=== PATIENT | female | born 1995 | race Caucasian/White ===

== ENCOUNTER → 2018-03-27 17:10 | Observation (INO) ==
--- NOTE | 2018-03-27 17:49 | OB/GYN Progress Note ---
Date of Encounter: 03/27/18 Time of Encounter: 16:30 - Assessment and Plan (1) 36 weeks gestation of Status: Acute Pooling, Nitrazine & Fern Negative. SVE unchanged from appointment yesterday. NST reactive, FHR baseline 140 bpm. Reviewed kick counts. Discharge home with return precautions. (2) Amniotic fluid leaking Status: Acute Subjective - Subjective Principal diagnosis: loss of fluid Interval history: 22 y/o presenting at 36w1d with c/o of loss of fluid that occurred at 1515. Denies VB or Ctx. Reports good FM. Antepartum ROS: loss of fluid, movement normal, no vaginal bleeding, no contractions Objective - Vital Signs Vital Signs: Intake and Output 03/27/18 03/27/18 03/27/18 07:59 15:59 23:59 Other: Weight 79.5 kg Patient Weight 03/27/18 23:59 Weight 79.5 kg - Exam FHR comments: NST reactive, FHR baseline 140 bpm Auscultation: bilateral: normal Abdomen: Present: normal appearance, soft, gravid Cervical dilation: fingertip Cervix effacement: thick station: high
== END | disposition home or self-care (01) ==
LOC: 1NENULAB
PROVIDERS: ADMIT Registered Nurse; ATTEND Registered Nurse

== ENCOUNTER 2018-04-16 08:00 | Inpatient (IN) ==
[2018-04-16] MEDS ORDERED: Metoclopramide 10 MG/2 ML VIAL IVP PRN (08:41)
[2018-04-16] MEDS ORDERED: Famotidine 20 MG/2 ML VIAL IVP PRN (08:41)
[2018-04-16] MEDS ORDERED: Ondansetron 4 MG/2 ML VIAL IVP PRN (08:41)
[2018-04-16] MEDS ORDERED: Naloxone 0.4 MG/ML INJ IVP PRN (08:41)
[2018-04-16] MEDS ORDERED: *HR* Nalbuphine 10 MG/ML AMPUL IVP PRN (08:41)
[2018-04-16] MEDS ORDERED: Ringers Solution, Lactated 1,000 ML IVC SCH (08:45)
[2018-04-16 09:16] LABS: Basophils % 0.5 %; Eosinophils # 0.1 K/mcL (0.0-0.6); Hematocrit 32.5 % (35.3-44.9); Hemoglobin 10.5 g/dL (11.5-15.4); Immature Granulocytes % 1.7 % (0-4); Lymphocytes # 1.9 K/mcL (0.6-4.6); Lymphocytes % 23.4 %; Mean Corpuscular HGB Conc 32.3 g/dL (31.6-35.5); Mean Corpuscular Hemoglobin 28.3 pg (28.0-33.3); Mean Corpuscular Volume 87.6 fL (83.0-100.0); Monocytes # 0.7 K/mcL (0.0-1.3); Monocytes % 7.9 %; Neutrophils # 5.4 K/mcL (1.6-8.9); Platelet Count 250 K/mcL (140-400); Red Blood Count 3.71 M/mcL (3.82-4.97); Red Cell Distribution Width 13.1 % (11.5-14.5); Segmented Neutrophils % 65.5 %
[2018-04-16] MEDS ORDERED: Epidural Premix (fent/bupiv) 110 ML EP SCH (09:30)
[2018-04-16 09:38] LABS: Amphetamine Screen,Urine Negative ng/mL (Cutoff=1000); Barbiturate Screen,Urine Negative ng/mL (Cutoff=200); Benzodiazepines Screen,Urine Negative ng/mL (Cutoff=200); Cannabinoid Screen,Urine Negative ng/mL (Cutoff = 50); Cocaine Screen,Urine Negative ng/mL (Cutoff= 300); Opiate Screen,Urine Negative ng/mL (Cutoff=300); Phencyclidine Screen,Urine Negative ng/mL (Cutoff=25)
[2018-04-16] MEDS ORDERED: miSOPROStol 25 MCG TABLET PO PRN (10:00)
--- NOTE | 2018-04-16 10:25 | Anesthesia Evaluation PreOp ---
Date of Encounter: 04/16/18 Time of Encounter: 10:07 - Past History Planned Operation: Del, term induction G1 Cardiac History: Denies any Significant Hx Pulmonary History: Denies Any Significant HX CONSTRUCTION COORDINATOR History: Denies Any Significant HX Other Medical History: Other (occ right sided sciatic pain, non-dependent radiculopathy down to knee, just started 1 month ago.) Anesthesia History: No Prior Anesthetic Complications, Past Anesthesia (no family hx reported.) Alcohol Use: none Drug use: none Medications and Allergies Ondansetron HCl [Zofran] 1 tab PO Q6H PRN 01/12/18 [History] Pnv95/Ferrous Fumarate/FA [ Vitamin Tablet] 1 tab PO DAILY 01/12/18 [History] Buspar 15 mg PO ONCE 04/16/18 [History] Omeprazole 40 mg PO ONCE 04/16/18 [History] Vistaril 04/16/18 [History] Allergy/AdvReac Type Severity Reaction Status Date / Time No Known Allergies Allergy Verified 01/12/18 14:24 Anesthesia Results - Labs 04/16/18 08:35 Anesthesia Exam - HEENT Pupil (Motor): Pupils equal Mallampati: II Teeth: Normal Oral Opening: Greater than 3 - CONSTRUCTION COORDINATOR LOC: Oriented CONSTRUCTION COORDINATOR Motor: Normal RUE, Normal LUE, Normal RLE, Normal LLE, Normal Face CONSTRUCTION COORDINATOR Sensory: Normal: RUE, LUE, RLE, LLE, Face - Cardiac Rhythm: Regular Murmur: None - Pulmonary Breath Sounds: bilateral Clear Respiratory Effort: Symmetrical Anesthesia Assess/Plan ASA Score: 2 Level of consciousness: Cooperative, Oriented Anesthetic Plan: General, Spinal, Epidural Monitoring Plan: Standard Monitors Recovery Plan: PACU
[2018-04-16] MEDS ORDERED: Lidocaine -MPF 2% 5 ML VIAL ONE (10:29)
[2018-04-16] MEDS: Acetaminophen 325 MG TABLET PO PRN ×2 (12:47→21:41)
--- NOTE | 2018-04-16 13:40 | OB Labor Progress Note ---
Date of Encounter: 04/16/18 Time of Encounter: 12:30 Labor Progress Note - Subjective Subjective: Patient resting in bed with family members at bedside. - Vital Signs Vital Signs: WNL - Cervix Cervix: 2/70/-3 - Heart Tones Heart Tones: FHR 130 bpm, moderate variability, +15x15 accels, no decels. - [place]: Irregular - Interventions Interventions: SVE Double cervical ripening balloon inserted. 60mL instilled in uterine balloon, 40 mL instilled in vaginal balloon. - Plan Physician notified: Yes Physician notified details: Dr. Lawton aware of michael placement Plan: Recheck cervix in 4 hours and consider michael removal. May have IV pain medication or epidural when she desires. AROM when appropriate Anticipate
[2018-04-16] MEDS ORDERED: Oxytocin 20 units/ LR 1000 mL 20 UNIT/1,000 ML BAG IVC SCH (15:45)
--- NOTE | 2018-04-16 17:02 | Event Note ---
Date of Encounter: 04/16/18 Time of Encounter: 16:30 SVE, double cervical ripening balloon removed. SVE /
--- NOTE | 2018-04-16 18:18 | Anesthesia Procedures ---
Addendum entered and electronically signed by Keenan Barragan CRNA 04/17/18 06:30: Infant Delivery Date: 04/17/18 Infant Delivery Time: 05:11 Original Note: Date of Encounter: 04/16/18 Time of Encounter: 17:28 Procedures: Anesthesia - Epidural/Spinal Patient ID/Chart reviewed: Yes Patient examined: Yes OB Eval: Gestational age: term OB Eval: : 1 OB Eval: Contractions: Non-stressed pattern Consent Obtained: Yes Supplemental Oxygen: None/Room Air Site Prep: Aseptic Technique, Sterile prep and drape, 0.5% Chlorhexidine/Alcohol Patient position: upright Local Anesthetic: Lidocaine 1% Amount of Local Anesthetic used: 2 Touhy Needle Gauge: 18 Touhy Needle Depth (cm): 6 Catheter Depth at Skin (cm): 10 Test Dose (1.5% Lido + Epi): Volume given (mls): 4 Test Dose Result: Negative Loading Dose: Other: 10ml from solution Loading Dose Administered: Thru Catheter Infusion Med: 0.125% Bupivacaine w/ 2 mcg/ml Fentanyl Infusion Rate (mls/hr): [address]: Tegaderm, Tape Interspace Used: L3-L4 Loss of Resistance (DONNA): Yes (saline) Blood: No CSF: No Paresthesia: No Procedure: vss though out, FHR stable per rn's
[2018-04-17] MEDS ORDERED: *HR* Ropivacaine/PF 0.5% 20 ML VIAL ONE (01:23)
--- NOTE | 2018-04-17 05:47 | OB/GYN Procedure Note ---
Delivery - Delivery Date: 04/17/18 Provider: Isaiah Lawton Delivery induction: misoprostol Delivery augmentation: rupture of membranes Delivery monitor: external uterine, internal uterine Anesthesia: epidural Quantitated Blood Loss: 200 - (s) Infant A Delivery Date: 04/17/18 Delivery Time: 05:11 Presentation: vertex Position: YOVANI Route of delivery: Gender: Female Viability: Viable Pounds: 7 Ounces: 9 at 1 minute: 8 at 5 mins: 9 Shoulder Dystocia: not encountered Cord: 3 umbilical vessels - Repair Episiotomy: none Laceration Description: Perineal - 1st Degree, Labial - Complications Delivery complications: none - Disposition Mom disposition: stable in LDR [place] disposition: stable in LDR - Comments Comments: Patient is status post normal spontaneous vaginal delivery of liveborn female infant. Delivery was from left occiput anterior presentation. We had spontaneous delivery of a normal placenta with three-vessel cord. There were bilateral labial tears and a first-degree laceration repaired with 3-0 Vicryl under epidural anesthesia. Estimated blood loss was 200 mL. Mother and infant recovered in labor and delivery room.
[2018-04-17] MEDS ORDERED: Oxytocin 20 units/ LR 1000 mL 20 UNIT/1,000 ML BAG IVC SCH (08:35)
[2018-04-17] MEDS ORDERED: Acetaminophen 325 MG TABLET PO PRN (08:35)
[2018-04-17] MEDS ORDERED: Measles/Mumps/Rubella Vacc 0.5 ML VIAL SQ PRN (08:35)
[2018-04-17] MEDS: Prenatal Vit/FA 1 EACH TABLET PO SCH (09:30)
[2018-04-17] MEDS: Ibuprofen 600 MG TABLET PO PRN ×3 (09:30→21:50)
[2018-04-18 06:19] LABS: Basophils % 0.2 %; Eosinophils # 0.1 K/mcL (0.0-0.6); Eosinophils % 1.2 %; Hematocrit 26.7 % (35.3-44.9); Immature Granulocytes % 0.8 % (0-4); Lymphocytes # 1.9 K/mcL (0.6-4.6); Lymphocytes % 18.6 %; Mean Corpuscular HGB Conc 31.5 g/dL (31.6-35.5); Mean Corpuscular Hemoglobin 27.5 pg (28.0-33.3); Mean Corpuscular Volume 87.3 fL (83.0-100.0); Mean Platelet Volume 9.9 fL (9.4-12.4); Monocytes # 0.7 K/mcL (0.0-1.3); Monocytes % 7.1 %; Neutrophils # 7.4 K/mcL (1.6-8.9); Platelet Count 204 K/mcL (140-400); Red Blood Count 3.06 M/mcL (3.82-4.97); Segmented Neutrophils % 72.1 %
[2018-04-18 06:20] LABS: Hemoglobin 8.4 g/dL (11.5-15.4)
[2018-04-18 07:42] VITALS: BP 98/62
[2018-04-18] MEDS: Prenatal Vit/FA 1 EACH TABLET PO SCH (09:34)
[2018-04-18] MEDS: Ibuprofen 600 MG TABLET PO PRN (09:35)
--- NOTE | 2018-04-18 09:40 | Discharge Summary ---
Date of Encounter: 04/18/18 Time of Encounter: 09:37 - Discharge Diagnosis (1) Vaginal delivery Priority: Primary Status: Acute Comments: Patient meeting day one milestones. Pain well-controlled with prescribed medications. Voiding without difficulty, tolerating regular diet. No bowel movement yet. Anticipate discharge today Patient does request Depo Provera prior to discharge. (2) First degree perineal laceration Priority: Secondary Status: Acute Comments: Ice pack, Dermoplast, Motrin as needed for discomfort. (3) Breast feeding status of mother Priority: Secondary Status: Acute Comments: support as needed. Patient does request a breast pump prescription. (4) anemia Priority: Secondary Status: Acute Comments: Discharge home with iron twice a day Patient is asymptomatic with a hemoglobin of 8.4 - Discharge Medications Prescriptions: New Breast Pump [BREAST PUMP] 1 each .ROUTE AD #1 each Acetaminophen [Tylenol] 650 mg PO Q6HR PRN tablet PRN Reason: Mild Pain Ibuprofen [Motrin] 600 mg PO Q6HR PRN #60 tablet PRN Reason: cramping Docusate [Colace] 100 mg PO BID capsule Ferrous Sulfate 325 mg PO BID #60 tablet Continue Pnv95/Ferrous Fumarate/FA [ Vitamin Tablet] 1 tab PO DAILY Vistaril Omeprazole 40 mg PO ONCE Buspar 15 mg PO ONCE Discontinued Ondansetron HCl [Zofran] 1 tab PO Q6H PRN PRN Reason: Nasal Congestion Home Medications: Pnv95/Ferrous Fumarate/FA [ Vitamin Tablet] 1 tab PO DAILY 01/12/18 [History] Buspar 15 mg PO ONCE 04/16/18 [History] Omeprazole 40 mg PO ONCE 04/16/18 [History] Vistaril 04/16/18 [History] Breast Pump [BREAST PUMP] 1 each .ROUTE AD #1 each 04/17/18 [Rx] Acetaminophen [Tylenol] 650 mg PO Q6HR PRN tablet 04/18/18 [Rx] Docusate [Colace] 100 mg PO BID capsule 04/18/18 [Rx] Ferrous Sulfate 325 mg PO BID #60 tablet 04/18/18 [Rx] Ibuprofen [Motrin] 600 mg PO Q6HR PRN #60 tablet 04/18/18 [Rx] Allergies/Adverse Reactions: Allergy/AdvReac Type Severity Reaction Status Date / Time No Known Allergies Allergy Verified 01/12/18 14:24 Data Procedures and tests throughout hospitalization: Laboratory Tests 04/16/18 04/16/18 04/18/18 08:35 08:35 06:07 WBC 8.3 10.2 RBC 3.71 L 3.06 L Hgb 10.5 L 8.4 L D Hct 32.5 L 26.7 L MCV 87.6 87.3 MCH 28.3 27.5 L MCHC 32.3 31.5 L RDW 13.1 13.0 Plt Count 250 204 MPV 10.0 9.9 Immature Gran % 1.7 0.8 Seg Neutrophils % 65.5 72.1 Lymphocytes % 23.4 18.6 Monocytes % 7.9 7.1 Eosinophils % 1.0 1.2 Basophils % 0.5 0.2 Neutrophils # 5.4 7.4 Lymphocytes # 1.9 1.9 Monocytes # 0.7 0.7 Eosinophils # 0.1 0.1 Basophils # 0.0 0.0 Urine Opiates Screen Negative Ur Barbiturates Screen Negative Ur Phencyclidine Scrn Negative Ur Amphetamines Screen Negative U Benzodiazepines Scrn Negative Urine Cocaine Screen Negative U Marijuana (THC) Screen Negative Ur Drug Screen Interp See Below Labs on day of discharge: Labs from last 24 hours 04/18/18 06:07 WBC 10.2 RBC 3.06 L Hgb 8.4 L D Hct 26.7 L MCV 87.3 MCH 27.5 L MCHC 31.5 L RDW 13.0 Plt Count 204 MPV 9.9 Immature Gran % 0.8 Seg Neutrophils % 72.1 Lymphocytes % 18.6 Monocytes % 7.1 Eosinophils % 1.2 Basophils % 0.2 Neutrophils # 7.4 Lymphocytes # 1.9 Monocytes # 0.7 Eosinophils # 0.1 Basophils # 0.0 Date of admission: 04/16/18 08:09 Primary care physician: Isaiah Lundberg DO Consults: 04/17/18 08:35 Consult to Poultry Killer [CONS] Routine Comment: Vaginal delivery, consult needed Discharging clinician: Tania Velasquez Anticipated date of discharge: 04/18/18 - Patient Status Disposition: Home, Self-Care Condition: Good Functional capacity at discharge: independent ambulation Overall status at discharge: patient is progressing back to baseline - Discharge Instructions Follow Up With: Isaiah Lundberg DO [Primary Care Provider] - - Diet and Activity Activity: resume usual activities as tolerated Diet: regular diet Hospital Course Reason for admission: induction of labor Delivery: Episiotomy: none Laceration: 1st degree Other procedures: none complications: none Discharge diagnosis: IUP at term delivered [place] baby: female Hospital course: Delivery Date: 04/17/18 Provider: Isaiah Lawton Delivery induction: misoprostol Delivery augmentation: rupture of membranes Delivery monitor: external uterine, internal uterine Anesthesia: epidural Quantitated Blood Loss: 200 - Infant (s) A Delivery Date: 04/17/18 Delivery Time: 05:11 Presentation: vertex Position: YOVANI Route of delivery: Gender: Female Viability: Viable Pounds: 7 Ounces: 9 at 1 minute: 8 at 5 mins: 9 Shoulder Dystocia: not encountered Cord: 3 umbilical vessels - Repair Episiotomy: none Laceration Description: Perineal - 1st Degree, Labial - Complications Delivery complications: none - Disposition Mom disposition: stable in LDR [place] disposition: stable in LDR - Comments Comments: Patient is status post normal spontaneous vaginal delivery of liveborn female infant. Delivery was from left occiput anterior presentation. We had spontaneous delivery of a normal placenta with three-vessel cord. There were bilateral labial tears and a first-degree laceration repaired with 3-0 Vicryl under epidural anesthesia. Estimated blood loss was 200 mL. Mother and infant recovered in labor and delivery room. Time Attestation: Total time spent providing and/or coordinating discharge services: Time Spent: Less than 30 minutes Exam - Constitutional Vitals: Temp Pulse Resp BP Pulse Ox 98.1 F 78 14 98/62 98 04/18/18 07:42 04/18/18 07:42 04/18/18 07:42 04/18/18 07:42 04/18/18 07:42 General appearance IM: cooperative, A&O X 3, pleasant, no acute distress, answers questions appropriately - Respiratory Respiratory exam: Present: CTAB - Cardiovascular Cardiovascular exam IM: Present: RRR, +S1, +S2 - GI/Abdominal GI/Abdominal exam IM: normal bowel sounds, soft - Rectal Rectal exam: deferred - External exam: normal external exam Uterine Tone: Firm Uterus Position: 1 Finger Below Umbilicus - Extremities Exam Extremities exam IM: Present: normal capillary refill - Neurological Exam Neurological exam: alert, normal gait, oriented X3
== END 2018-04-18 13:35 | disposition home or self-care (01) | DRG 807 ==
LOC: 1NENULAB 08:09 → 1NENUOBS 04-17 08:22
PROVIDERS: ADMIT Obstetrics & Gynecology; ATTEND Obstetrics & Gynecology